=== PATIENT | female | born 1960 | race Two or more races ===

== ENCOUNTER 2021-06-10 10:08 | Inpatient (IN) | payer MEDICAID ==
[~2021-06-10] VITALS: Ht 152.4 cm; Wt 99.1 kg
[~2021-06-10 10:08] MED LIST: AML5T PO; ENAL2.5T11 PO; FLUC100T3 PO; METF-372 PO; SIMV10TA84 PO; [UNRECOGNIZED DRUG - OTHER]
[2021-06-10] MEDS ORDERED: ONDANSETRON HCL 4 MG/2 ML VIAL IV ONE (12:15)
[2021-06-10] MEDS ORDERED: MORPHINE SULFATE 4 MG/ML SYR/VIAL IV ONE (12:15)
[2021-06-10] MEDS ORDERED: SODIUM CHLORIDE 0.9% 1,000 ML IV ONE (12:15)
[2021-06-10 13:17] LABS: Basophils # (auto) 0 10 ^3/uL (0-0.2); Basophils % (auto) 0.3 % (0.0-2.0); Eosinophils # (auto) 0 10 ^3/uL (0-0.8); Eosinophils % (auto) 0.2 % (0.0-7.0); Hematocrit 38.9 % (36.0-46.0); Lymphocytes # (auto) 1.2 10 ^3/uL (0.4-5.4); Lymphocytes % (auto) 7.2 % (10.0-50.0); Mean Corpuscular Hgb Conc. 33.5 g/dL (32.0-36.0); Mean Corpuscular Volume 86.6 fL (80.0-100.0); Monocytes # (auto) 0.6 10 ^3/uL (0-1.3); Monocytes % (auto) 3.4 % (0.0-12.0); Neutrophils # (auto) 14.4 10 ^3/uL (1.6-8.6); Neutrophils % (auto) 88.9 % (37.0-80.0); Nucleated Red Blood Cells % 0.1 %; Red Cell Distribution Width 15.7 % (11.8-14.3); White Blood Cell 16.2 10^3/uL (4.4-10.8)
[2021-06-10 13:28] LABS: Albumin 3.3 g/dL (3.4-5.0); Calcium 8.8 mg/dL (8.5-10.1); Potassium 4.3 mmol/L (3.5-5.1)
[2021-06-10 13:30] LABS: Urine Bacteria NONE SEEN /hpf (None Seen); Urine Blood 2+ /uL (Negative); Urine Mucus FEW (None Seen); Urine Specific Gravity 1.026 (1.001-1.035); Urine WBC <1 /hpf (0 - 5)
[2021-06-10 13:33] LABS: INR 1.01 (0.9-1.15)
[2021-06-10 13:34] LABS: BUN/Creatinine Ratio 26.4; Bilirubin, Total 0.4 mg/dL (0.2-1.0); Total Protein 7.7 g/dL (6.4-8.2)
[2021-06-10] MEDS ORDERED: SODIUM CHLORIDE 0.9% 1,000 ML IV SCH (18:00)
[2021-06-10] MEDS ORDERED: MORPHINE SULFATE INJECTION 2 MG/ML SYRG IV PRN (18:00)
[2021-06-10] MEDS ORDERED: NITROGLYCERIN 0.4 MG SL TAB SL PRN (18:00)
[2021-06-10 22:51] VITALS: BP 133/47
[2021-06-10 23:00] VITALS: BP 133/47
[2021-06-11] MEDS ORDERED: INFLUENZA QUAD 2021-2022 0.5 ML SYRG IM ONE
[2021-06-11 05:00] VITALS: BP 128/67
[2021-06-11 06:07] LABS: Basophils # (auto) 0 10 ^3/uL (0-0.2); Basophils % (auto) 0.3 % (0.0-2.0); Eosinophils # (auto) 0 10 ^3/uL (0-0.8); Eosinophils % (auto) 0.4 % (0.0-7.0); Hematocrit 36.6 % (36.0-46.0); Hemoglobin 12.3 g/dL (12.2-16.2); Lymphocytes % (auto) 17.3 % (10.0-50.0); Mean Corpuscular Hemoglobin 28.9 pg (28.0-32.0); Mean Corpuscular Hgb Conc. 33.5 g/dL (32.0-36.0); Mean Corpuscular Volume 86.3 fL (80.0-100.0); Monocytes # (auto) 0.7 10 ^3/uL (0-1.3); Monocytes % (auto) 6.1 % (0.0-12.0); Neutrophils # (auto) 8.7 10 ^3/uL (1.6-8.6); Neutrophils % (auto) 75.9 % (37.0-80.0); Red Blood Cells 4.24 10^6/uL (4.0-5.20); Red Cell Distribution Width 15.3 % (11.8-14.3); White Blood Cell 11.5 10^3/uL (4.4-10.8)
[2021-06-11 06:31] LABS: Calcium 8.7 mg/dL (8.5-10.1); Potassium 4.2 mmol/L (3.5-5.1)
[2021-06-11 06:34] LABS: BUN/Creatinine Ratio 18.6
[2021-06-11 06:36] LABS: Bilirubin, Total 0.6 mg/dL (0.2-1.0); Total Protein 7.1 g/dL (6.4-8.2)
[2021-06-11] MEDS ORDERED: SODIUM CHLORIDE 0.9% 1,000 ML IV SCH (07:15)
[2021-06-11 09:00] VITALS: BP 135/71
[2021-06-11] MEDS: MORPHINE SULFATE INJECTION 2 MG/ML SYRG IV PRN (12:37)
[2021-06-11 13:00] VITALS: BP 137/67
[2021-06-11] MEDS ORDERED: SUCCINYLCHOLINE CHLORIDE 20 MG/ML 10ML VIAL IV ONE (13:24)
[2021-06-11] MEDS ORDERED: MORPHINE SULF PF 2 MG/2 ML SYRG ONE (13:35)
[2021-06-11] MEDS ORDERED: KETOROLAC TROMETH 30 MG/ML 1ML VIAL ONE (13:36)
[2021-06-11] MEDS ORDERED: BUPIVACAINE W/ EPINEPH 0.25% INJ 50ML MDV ONE (13:37)
[2021-06-11] MEDS ORDERED: MEPERIDINE HCL (50 MG/ML) 1 ML VIAL ONE (13:46)
[2021-06-11] MEDS ORDERED: fentaNYL CITRATE 100 MCG/2 ML VL ONE (13:46)
[2021-06-11] MEDS ORDERED: MIDAZOLAM HCL 2MG/2ML 2ml VIAL (1mg/ml) ONE (13:46)
[2021-06-11] MEDS ORDERED: InsuLIN REG 1unit/0.01ml Soln (100units/ml) ONE (14:07)
[2021-06-11] MEDS ORDERED: LABETALOL HCL 5 MG/ML 4ML SYRINGE IV PRN (14:45)
[2021-06-11] MEDS ORDERED: HYDROmorphone HCL 2 MG/ML VL IV PRN (14:45)
[2021-06-11] MEDS ORDERED: ePHEDrine SULFATE 50 MG/ML AMP IV PRN (14:45)
[2021-06-11] MEDS ORDERED: ACCU-CHEK COMFORT CURVE STRIP VI ONE (14:45)
[2021-06-11] MEDS ORDERED: MIDAZOLAM HCL 2MG/2ML 2ml VIAL (1mg/ml) IV PRN (14:45)
[2021-06-11] MEDS ORDERED: MORPHINE SULFATE 4 MG/ML SYR/VIAL IV PRN (14:45)
[2021-06-11] MEDS ORDERED: ONDANSETRON HCL 4 MG/2 ML VIAL IV PRN (14:45)
[2021-06-11] MEDS ORDERED: ETOMIDATE (2MG/ML) 20ML VIAL IV ONE (15:07)
[2021-06-11] MEDS ORDERED: ONDANSETRON HCL 4 MG/2 ML VIAL ONE (15:07)
[2021-06-11] MEDS ORDERED: DexAMETHasone SOD PHOS 10MG/1ML VIAL INJ ONE (15:07)
[2021-06-11] MEDS ORDERED: DEXTROSE (50%) 50ML SYRG IV PRN (15:45)
[2021-06-11 17:00] VITALS: BP 152/73
[2021-06-11] MEDS ORDERED: ACCU-CHEK COMFORT CURVE STRIP VI SCH (17:00)
[2021-06-11] MEDS: LACTATED RINGER'S 1,000 ML IV SCH (17:36)
[2021-06-11] MEDS: InsuLIN REG 1unit/0.01ml Soln (100units/ml) SC SCH ×2 (18:10→23:10)
[2021-06-11] MEDS: ACCU-CHEK COMFORT CURVE STRIP VI SCH ×2 (18:13→22:00)
[2021-06-11 22:00] VITALS: BP 148/74
[2021-06-11] MEDS: SODIUM CHLOR 0.9% PF (SALINE LOCK) 10ML VIAL/SYR IV SCH (22:00)
[2021-06-12] MEDS: LACTATED RINGER'S 1,000 ML IV SCH ×2 (01:30→05:29)
[2021-06-12 05:00] VITALS: BP 129/61
[2021-06-12] MEDS: HYDROcodone-ACET 5/325MG TAB PO PRN ×2 (05:23→15:50)
[2021-06-12] MEDS: InsuLIN REG 1unit/0.01ml Soln (100units/ml) SC SCH ×3 (07:00→23:14)
[2021-06-12] MEDS: ACCU-CHEK COMFORT CURVE STRIP VI SCH ×4 (07:00→22:00)
[2021-06-12 07:08] LABS: Albumin 2.6 g/dL (3.4-5.0); Calcium 8.9 mg/dL (8.5-10.1); Potassium 4.8 mmol/L (3.5-5.1)
[2021-06-12 07:10] LABS: BUN/Creatinine Ratio 28.8
[2021-06-12 07:12] LABS: Bilirubin, Total 0.4 mg/dL (0.2-1.0); Total Protein 6.6 g/dL (6.4-8.2)
[2021-06-12 07:23] LABS: Hematocrit 32.7 % (36.0-46.0); Hemoglobin 10.7 g/dL (12.2-16.2)
[2021-06-12 09:00] VITALS: BP 120/51
[2021-06-12] MEDS: ENOXAPARIN SOD 40 MG/0.4 ML SYRINGE SC SCH (09:40)
[2021-06-12 13:00] VITALS: BP 108/63
[2021-06-12] MEDS ORDERED: ERGOCALCIFEROL 50,000 UNIT(1.25MG) CAP PO ONE (14:45)
[2021-06-12] MEDS ORDERED: hydrALAZINE HCL 20 MG/ML VL IV PRN (14:45)
[2021-06-12 17:00] VITALS: BP 125/62
[2021-06-12 22:00] VITALS: BP 120/48
[2021-06-12] MEDS: INSULIN LANTUS (GLARGINE) 1 /0.01ml (100units/ml) SC SCH (23:16)
[2021-06-13 05:00] VITALS: BP 118/63
[2021-06-13] MEDS: LACTATED RINGER'S 1,000 ML IV SCH ×2 (07:25→23:45)
[2021-06-13] MEDS: InsuLIN REG 1unit/0.01ml Soln (100units/ml) SC SCH ×4 (07:26→21:11)
[2021-06-13] MEDS: ACCU-CHEK COMFORT CURVE STRIP VI SCH ×4 (07:26→21:05)
[2021-06-13 08:30] LABS: Basophils # (auto) 0 10 ^3/uL (0-0.2); Basophils % (auto) 0.3 % (0.0-2.0); Eosinophils # (auto) 0.2 10 ^3/uL (0-0.8); Eosinophils % (auto) 1.4 % (0.0-7.0); Hematocrit 29.4 % (36.0-46.0); Hemoglobin 10.1 g/dL (12.2-16.2); Lymphocytes # (auto) 2.7 10 ^3/uL (0.4-5.4); Lymphocytes % (auto) 25.6 % (10.0-50.0); Mean Corpuscular Hemoglobin 29.8 pg (28.0-32.0); Mean Corpuscular Hgb Conc. 34.3 g/dL (32.0-36.0); Mean Corpuscular Volume 86.8 fL (80.0-100.0); Monocytes # (auto) 0.5 10 ^3/uL (0-1.3); Neutrophils # (auto) 7.2 10 ^3/uL (1.6-8.6); Neutrophils % (auto) 67.7 % (37.0-80.0); Red Blood Cells 3.38 10^6/uL (4.0-5.20); Red Cell Distribution Width 15.2 % (11.8-14.3); White Blood Cell 10.7 10^3/uL (4.4-10.8)
[2021-06-13 08:36] LABS: Potassium 3.9 mmol/L (3.5-5.1)
[2021-06-13 09:00] VITALS: BP 111/38
[2021-06-13] MEDS: HYDROcodone-ACET 5/325MG TAB PO PRN ×5 (09:23→20:03)
[2021-06-13] MEDS: CHOLECALCIFEROL (VITD3) 2,000 UNIT CAP/TAB PO SCH (09:26)
[2021-06-13] MEDS: amLODIPine BESYLATE 5 MG TAB PO SCH (09:27)
[2021-06-13] MEDS: ENOXAPARIN SOD 40 MG/0.4 ML SYRINGE SC SCH (09:27)
[2021-06-13 10:27] LABS: BUN/Creatinine Ratio 33.3; Calcium 8.5 mg/dL (8.5-10.1); Magnesium 2.3 mg/dL (1.6-2.6)
[2021-06-13 13:00] VITALS: BP 122/57
[2021-06-13 17:00] VITALS: BP 116/40
[2021-06-13] MEDS: MORPHINE SULFATE INJECTION 2 MG/ML SYRG IV PRN (20:06)
[2021-06-13] MEDS: INSULIN LANTUS (GLARGINE) 1 /0.01ml (100units/ml) SC SCH (21:10)
[2021-06-13 21:47] VITALS: BP 121/52
[2021-06-13] MEDS: SODIUM CHLOR 0.9% PF (SALINE LOCK) 10ML VIAL/SYR IV SCH (22:00)
[2021-06-14 04:36] VITALS: BP_SYST 134; BP_SYST 34; BP_DIAS 50
[2021-06-14] MEDS: ACCU-CHEK COMFORT CURVE STRIP VI SCH ×4 (06:36→21:47)
[2021-06-14] MEDS: InsuLIN REG 1unit/0.01ml Soln (100units/ml) SC SCH ×4 (06:38→21:58)
[2021-06-14 06:56] LABS: Basophils # (auto) 0.1 10 ^3/uL (0-0.2); Basophils % (auto) 0.5 % (0.0-2.0); Eosinophils # (auto) 0.5 10 ^3/uL (0-0.8); Hematocrit 30.2 % (36.0-46.0); Hemoglobin 10.2 g/dL (12.2-16.2); Lymphocytes # (auto) 2.4 10 ^3/uL (0.4-5.4); Lymphocytes % (auto) 24.9 % (10.0-50.0); Mean Corpuscular Hemoglobin 29.3 pg (28.0-32.0); Mean Corpuscular Hgb Conc. 33.7 g/dL (32.0-36.0); Mean Corpuscular Volume 87.1 fL (80.0-100.0); Monocytes # (auto) 0.5 10 ^3/uL (0-1.3); Monocytes % (auto) 4.9 % (0.0-12.0); Neutrophils # (auto) 6.3 10 ^3/uL (1.6-8.6); Neutrophils % (auto) 64.7 % (37.0-80.0); Nucleated Red Blood Cells % 0.1 %; Red Blood Cells 3.47 10^6/uL (4.0-5.20); Red Cell Distribution Width 15.3 % (11.8-14.3); White Blood Cell 9.8 10^3/uL (4.4-10.8)
[2021-06-14] MEDS: SODIUM CHLOR 0.9% PF (SALINE LOCK) 10ML VIAL/SYR IV SCH ×3 (06:59→21:48)
[2021-06-14] MEDS: LACTATED RINGER'S 1,000 ML IV SCH ×2 (06:59→17:31)
[2021-06-14] MEDS: HYDROcodone-ACET 5/325MG TAB PO PRN ×3 (07:01→22:01)
[2021-06-14 07:21] LABS: Potassium 4.2 mmol/L (3.5-5.1)
[2021-06-14 07:48] LABS: Albumin 2.7 g/dL (3.4-5.0); Bilirubin, Total 0.5 mg/dL (0.2-1.0); Calcium 8.3 mg/dL (8.5-10.1); Total Protein 6.6 g/dL (6.4-8.2)
[2021-06-14 09:00] VITALS: BP 118/54
[2021-06-14] MEDS: amLODIPine BESYLATE 5 MG TAB PO SCH (09:01)
[2021-06-14] MEDS: CHOLECALCIFEROL (VITD3) 2,000 UNIT CAP/TAB PO SCH (09:03)
[2021-06-14] MEDS: ENOXAPARIN SOD 40 MG/0.4 ML SYRINGE SC SCH (09:04)
[2021-06-14 13:00] VITALS: BP 121/56
[2021-06-14] MEDS: INSULIN LANTUS (GLARGINE) 1 /0.01ml (100units/ml) SC SCH (21:57)
[2021-06-15] VITALS (7 sets, daily range): BP systolic 96–132; BP diastolic 44–68
[2021-06-15] MEDS: ACCU-CHEK COMFORT CURVE STRIP VI SCH ×4 (06:25→21:50)
[2021-06-15] MEDS: SODIUM CHLOR 0.9% PF (SALINE LOCK) 10ML VIAL/SYR IV SCH ×3 (06:34→21:50)
[2021-06-15] MEDS: InsuLIN REG 1unit/0.01ml Soln (100units/ml) SC SCH ×4 (06:43→21:51)
[2021-06-15] MEDS: LACTATED RINGER'S 1,000 ML IV SCH (09:25)
[2021-06-15] MEDS: CHOLECALCIFEROL (VITD3) 2,000 UNIT CAP/TAB PO SCH (10:03)
[2021-06-15] MEDS: ENOXAPARIN SOD 40 MG/0.4 ML SYRINGE SC SCH (10:04)
[2021-06-15] MEDS: amLODIPine BESYLATE 5 MG TAB PO SCH (10:04)
[2021-06-15] MEDS: HYDROcodone-ACET 5/325MG TAB PO PRN ×2 (10:22→18:09)
[2021-06-15] MEDS ORDERED: INSU1INJ21 SC (13:23)
[2021-06-15] MEDS ORDERED: GLIP10TA9 PO (13:23)
[2021-06-15] MEDS ORDERED: PIOG30TA28 PO (13:23)
[2021-06-15] MEDS ORDERED: INSULIN LANTUS (GLARGINE) 1 /0.01ml (100units/ml) SC SCH (22:00)
[2021-06-16] VITALS (7 sets, daily range): BP systolic 102–123; BP diastolic 40–62
[2021-06-16] MEDS: HYDROcodone-ACET 5/325MG TAB PO PRN ×3 (06:50→21:30)
[2021-06-16] MEDS: ACCU-CHEK COMFORT CURVE STRIP VI SCH ×4 (07:04→21:57)
[2021-06-16] MEDS: InsuLIN REG 1unit/0.01ml Soln (100units/ml) SC SCH ×4 (07:04→21:58)
[2021-06-16] MEDS: SODIUM CHLOR 0.9% PF (SALINE LOCK) 10ML VIAL/SYR IV SCH ×3 (07:05→21:56)
[2021-06-16] MEDS: amLODIPine BESYLATE 5 MG TAB PO SCH (10:10)
[2021-06-16] MEDS: CHOLECALCIFEROL (VITD3) 2,000 UNIT CAP/TAB PO SCH (10:10)
[2021-06-16] MEDS: ENOXAPARIN SOD 40 MG/0.4 ML SYRINGE SC SCH (10:11)
[2021-06-16] MEDS ORDERED: CHOL20007 PO (12:34)
[2021-06-16] MEDS ORDERED: ASPI-123 PO (12:34)
[2021-06-16] MEDS ORDERED: INSULIN LANTUS (GLARGINE) 1 /0.01ml (100units/ml) SC SCH (22:00)
[2021-06-17 05:10] VITALS: BP 122/56
[2021-06-17] MEDS: SODIUM CHLOR 0.9% PF (SALINE LOCK) 10ML VIAL/SYR IV SCH ×2 (06:13→12:04)
[2021-06-17] MEDS: ACCU-CHEK COMFORT CURVE STRIP VI SCH ×3 (06:15→17:51)
[2021-06-17] MEDS: InsuLIN REG 1unit/0.01ml Soln (100units/ml) SC SCH ×3 (06:18→18:24)
[2021-06-17 08:30] VITALS: BP 127/74
[2021-06-17] MEDS: HYDROcodone-ACET 5/325MG TAB PO PRN ×2 (08:44→17:39)
[2021-06-17 09:00] VITALS: BP 127/74
[2021-06-17] MEDS: CHOLECALCIFEROL (VITD3) 2,000 UNIT CAP/TAB PO SCH (09:16)
[2021-06-17] MEDS: amLODIPine BESYLATE 5 MG TAB PO SCH (09:17)
[2021-06-17] MEDS: ENOXAPARIN SOD 40 MG/0.4 ML SYRINGE SC SCH (09:17)
[2021-06-17] MEDS ORDERED: ASPirin-EC 325mg tab PO SCH (10:00)
[2021-06-17 12:40] VITALS: BP 124/70
[2021-06-17 16:40] VITALS: BP 131/66
[2021-06-17 16:53] VITALS: BP 131/66
== END 2021-06-17 20:20 | DRG 308 ==
LOC: ER 10:08 → EDBD 10:08 → OVERFLOW 17:53 → WEST WING 22:35
PROVIDERS: ADMIT Internal Medicine; ATTEND Internal Medicine
PROC: 3E02340 Introduction of Influenza Vaccine into Muscle, Percutaneous Approach (ICD-10-PCS; 2021-06-11)
PROC: 0QS704Z Reposition Left Upper Femur with Internal Fixation Device, Open Approach (ICD-10-PCS; principal; 2021-06-11 14:10)
DX: S72.142A Displaced intertrochanteric fracture of left femur, initial encounter for closed fracture (principal); Z68.41 Body mass index [BMI] 40.0-44.9, adult; D62 Acute posthemorrhagic anemia; E11.9 Type 2 diabetes mellitus without complications; D72.829 Elevated white blood cell count, unspecified; E66.01 Morbid (severe) obesity due to excess calories; E55.9 Vitamin D deficiency, unspecified; E78.5 Hyperlipidemia, unspecified; Z20.822 Contact with and (suspected) exposure to COVID-19; W18.39XA Other fall on same level, initial encounter; I10 Essential (primary) hypertension; Z79.84 Long term (current) use of oral hypoglycemic drugs; Z23 Encounter for immunization; Z82.0 Family history of epilepsy and other diseases of the nervous system; Z83.3 Family history of diabetes mellitus; Z87.442 Personal history of urinary calculi; Z88.1 Allergy status to other antibiotic agents; Z91.041 Radiographic dye allergy status; Y93.89 Activity, other specified; Y92.89 Other specified places as the place of occurrence of the external cause; Y99.8 Other external cause status
CPT/HCPCS: 36415; 71045; 72192; 73501; 73502; 73700; 76000; 80048; 80053; 80061; 81001; 82306; 82962; 83036; 83735; 83880; 84443; 84484; 85014; 85018; 85025; 85610; 85730; 86850; 86900; 86901; 87426; 96361; 96374; 96375; 97110; 97116; 97163; 97530; C1713; C1769; G0378; J0330; J1100; J1815; J1885; J2250; J2405

== ENCOUNTER → 2023-06-01 | Outpatient (CLI) | payer MEDICAID ==
[~2023-06-01] MED LIST changes: +ASPI-123 PO; -FLUC100T3 PO; +GLIP10TA9 PO; +INSU1INJ21 SC; -METF-372 PO; +PIOG30TA28 PO; +SIMV10TA20 PO; -SIMV10TA84 PO; -[UNRECOGNIZED DRUG - OTHER]
[2023-06-01 10:03] LABS: Basophils # (auto) 0.1 10 ^3/uL (0-0.2); Basophils % (auto) 0.7 % (0.0-2.0); Eosinophils # (auto) 0.4 10 ^3/uL (0-0.8); Eosinophils % (auto) 4.6 % (0.0-7.0); Hematocrit 40.3 % (36.0-46.0); Hemoglobin 13.3 g/dL (12.2-16.2); Lymphocytes # (auto) 2.5 10 ^3/uL (0.4-5.4); Lymphocytes % (auto) 25.8 % (10.0-50.0); Mean Corpuscular Volume 87.8 fL (80.0-100.0); Monocytes # (auto) 0.4 10 ^3/uL (0-1.3); Monocytes % (auto) 4.5 % (0.0-12.0); Neutrophils # (auto) 6.3 10 ^3/uL (1.6-8.6); Neutrophils % (auto) 64.4 % (37.0-80.0); Red Blood Cells 4.59 10^6/uL (4.0-5.20); Red Cell Distribution Width 15.8 % (11.8-14.3); White Blood Cell 9.8 10^3/uL (4.4-10.8)
[2023-06-01 10:29] LABS: Alanine Aminotransferase 20 U/L (7-40); Alkaline Phosphatase 91 U/L (46-116); Anion Gap 6 (5-15); BUN/Creatinine Ratio 15.8 (10.0-20.0); Blood Urea Nitrogen 12 mg/dL (9-23); Calcium 9.3 mg/dL (8.5-10.1); Carbon Dioxide 27 mmol/L (20-30); Chloride 102 mmol/L (98-107); Glucose 241 mg/dL (74-106); LDL Cholesterol 158 mg/dL (< 100); Potassium 4.4 mmol/L (3.5-5.1); Sodium 135 mmol/L (136-145); Triglycerides 84 mg/dL (< 150)
[2023-06-01 10:30] LABS: Albumin 4.2 g/dL (3.2-4.8); Aspartate Aminotransferase 17 U/L (13-40); Bilirubin, Total 0.4 mg/dL (0.2-1.0); Cholesterol 210 mg/dL (< 200); HDL Cholesterol 40 mg/dL (40-59); Total Protein 7.5 g/dL (5.7-8.2)
[2023-06-01 10:58] LABS: Folate (Folic Acid) 8.63 ng/mL (>5.38); Magnesium 1.8 mg/dL (1.6-2.6); Uric Acid 4.2 mg/dL (3.1-7.8)
[2023-06-01 14:04] LABS: Urine Bacteria FEW /hpf (None Seen); Urine Blood Negative /uL (Negative); Urine Clarity CLOUDY (Clear); Urine Color Yellow (Yellow); Urine Mucus FEW (None Seen); Urine Protein, UAD TRACE (Negative); Urine Specific Gravity 1.025 (1.001-1.035); Urine Urobilinogen Normal (Negative); Urine WBC 6 /hpf (0 - 5); Urine pH 5.5 (5.0-8.0)
== END | disposition home or self-care (01) ==
LOC: LAB 09:33
PROVIDERS: ATTEND Internal Medicine
DX: E61.2 Magnesium deficiency (principal); R94.6 Abnormal results of thyroid function studies; E79.0 Hyperuricemia without signs of inflammatory arthritis and tophaceous disease; R82.998 Other abnormal findings in urine; E55.9 Vitamin D deficiency, unspecified; D51.9 Vitamin B12 deficiency anemia, unspecified; R82.79 Other abnormal findings on microbiological examination of urine; R78.89 Finding of other specified substances, not normally found in blood; R68.89 Other general symptoms and signs; E78.49 Other hyperlipidemia; R73.09 Other abnormal glucose
CPT/HCPCS: 36415; 80053; 80061; 81001; 82306; 82607; 82746; 83036; 83735; 84443; 84550; 85025; 87086

== ENCOUNTER 2024-04-04 14:04 | Inpatient (IN) | payer OTHER, MEDICAID ==
[~2024-04-04] VITALS: Ht 152.4 cm; Wt 96.6 kg
[~2024-04-04 14:04] MED LIST changes: +ENAL1TAB43 PO; -ENAL2.5T11 PO
[2024-04-04] MEDS: SODIUM CHLORIDE 0.9% 1,000 ML IV ONE (17:00)
--- NOTE | 2024-04-04 17:09 | ED.PDOC ---
History of Present Illness HPI Comments 64 y/o F, with a Hx of morbid obesity, DM, HLD, HTN, and polysubstance abuse, presents with c/o posterior headache, speech stuttering problems, and lower back pain for the past 3x days s/p mechanical fall and injury 2x weeks ago. Patient endorses on onset of symptoms, suddenly and intermittently, for the past 3x days after she had fell backwards and landed and hit the back of her head against carpet deepthi in her home without lost of consciousness 2x weeks ago. Patient reports having no symptoms, initially, following incident and falling, due to slipping and losing her balance. She states on not seeking medical attention for incident until onset of symptoms. She denies any additional relevant or pertinent Hx, such as any additional injuries prior to or after the fall. She denies having any weakness, numbness, tingling sensation, dizziness, vision changes, or other associated symptoms or modifiers at this time. Chief Complaint: Fall Injury Time Seen by MD: 16:30 Primary Care Provider: LONA Reviewed Notes: Nurses Notes, Medications, Allergies Allergies: Coded Allergies: Iodine (Verified Allergy, Severe, 10/25/14) Amoxicillin (Verified Adverse Reaction, Mild, 05/07/15) STOMACHACHE Home Meds Active Scripts Aspirin (ENTERIC COATED ASPIRIN) 325 Mg Tab, 1 TAB PO DAILY, #30 TAB Prov:DAVID AMADOR MD 06/16/21 Reported Medications Glipizide (Glipizide) 10 Mg Tab, 1 TAB PO DAILY 06/15/21 Insulin NPH Isophane & Reg (Hu (Novolin 70/30 Flexpen (70-30) 100 Unit/ml) 1 Inj Inj, 50 UNIT SC QAM&QPM IF BS HIGH INJECT 50 UNITS QAM&QPM IF NORMAL INJECT 40 UNITS QAM &QPM 06/15/21 Pioglitazone Hydrochloride (Actos) 30 Mg Tab, 30 MG PO DAILY for 30 Days, #30 TAB 06/15/21 Enalapril Maleate (VASOTEC TABLET) 2.5 Mg Tb, 1 TAB PO DAILY, #30 TAB 5 Refills 05/07/15 Amlodipine Besylate (NORVASC TABLET) 5 Mg Tb, 1 TAB PO DAILY, #30 TAB 5 Refills 05/07/15 Simvastatin (Simvastatin) 10 Mg Tab, 1 TAB PO QPM, #30 TAB 5 Refills 05/07/15 Information Source: Patient Mode of Arrival: Ambulatory Severity: Moderate Timing: Days Duration: Since onset Prehospital treatment: None Past Medical History PAST MEDICAL HISTORY: DM, High Lipids, HTN, Kidney Stones Past Medical History (Other): morbid obesity Surgical History: Surgical History (Other): left-hip Sx s/p left hip fracture [employer] History: No Pertinent [employer] History Family History Family History: Unknown Social History Smoker: Non-Smoker Alcohol: Rarely Drugs: Marijuana ( ) Lives In: Home Neurological: reports: headache, speech problems Musculoskeletal: reports: back pain All Other Systems: Reviewed and Negative (negative unless otherwise stated above or in HPI) Physical Exam General Appearance: Mild Distress, Moderate Distress, Obese HEENT: Normal ENT Inspection, PERRL/EOMI, Other (In occipital scalp) Neck: Limited Range of Motion, Non-Tender Respiratory: Chest Non-Tender, Lungs Clear, No Accessory Muscle Use, No Respiratory Distress, Normal Breath Sounds Cardiovascular: No Edema, No JVD, No Murmur, No Gallop, Normal Peripheral Pulses, Regular Rate/Rhythm Breast Exam: Deferred Gastrointestinal: No Organomegaly, Non Tender, No Pulsatile Mass, Normal Bowel Sounds, Soft Genitalia: Deferred Pelvic: Deferred Rectal: Deferred Extremities: No calf tenderness, Normal capillary refill, Normal inspection, Normal range of motion, Non-tender, No pedal edema Musculoskeletal : Location: Bilateral Extremity Location: Back Apperance: Limited ROM, Tenderness: Moderate Neurologic: Alert, Depressed Affect, Headache, Speech Problem (Patient unable to complete sentence and also is stuttering this is after she had the fall few days ago early could also be TIA) Cerebellar Function: Normal Reflexes: Normal Skin: Dry, Normal Color, Warm Peripheral Pulses: 1+ carotid (R), 1+ carotid (L) Lymphatic: No Adenopathy Was a procedure done? Was a procedure done?: No EKG EKG : Pulse Rate (adult): 96 [place]: RAD Cardiac Rhythm: NSR Differential Dx Considerations may include: TIA, CVA, hannah-palsy, electrolyte imbalance, musculoskeletal pain, fracture, dislocation, contusion, bruising, intracranial bleed X-Ray, Labs, Meds, VS Vital Signs Date Time Temp Pulse Resp B/P (MAP) Pulse Ox O2 Delivery O2 Flow Rate FiO2 04/04/24 18:23 96 04/04/24 14:20 98.3 102 18 178/76 (110) 97 Lab Test 04/04/24 17:18 Range/Units White Blood Count 13.7 H 4.4-10.8 10^3/uL Red Blood Count 5.21 H 4.0-5.20 10^6/uL Hemoglobin 15.4 12.2-16.2 g/dL Hematocrit 45.2 36.0-46.0 % Mean Corpuscular Volume 86.7 80.0-100.0 fL Mean Corpuscular Hemoglobin 29.5 28.0-32.0 pg Mean Corpuscular Hemoglobin Concent 34.0 32.0-36.0 g/dL Red Cell Distribution Width 15.1 H 11.8-14.3 % Platelet Count 324 140-450 10^3/uL Mean Platelet Volume 9.3 6.9-10.8 fL Neutrophils (%) (Auto) 66.2 37.0-80.0 % Lymphocytes (%) (Auto) 25.7 10.0-50.0 % Monocytes (%) (Auto) 4.7 0.0-12.0 % Eosinophils (%) (Auto) 2.9 0.0-7.0 % Basophils (%) (Auto) 0.5 0.0-2.0 % Neutrophils # (Auto) 9.1 H 1.6-8.6 10 ^3/uL Lymphocytes # (Auto) 3.5 0.4-5.4 10 ^3/uL Monocytes # (Auto) 0.6 0-1.3 10 ^3/uL Eosinophils # (Auto) 0.4 0-0.8 10 ^3/uL Basophils # (Auto) 0.1 0-0.2 10 ^3/uL Nucleated Red Blood Cells 0.1 % Sodium Level 136 136-145 mmol/L Potassium Level 4.3 3.5-5.1 mmol/L Chloride Level 101 98-107 mmol/L Carbon Dioxide Level 28 20-31 mmol/L Anion Gap 7 5-15 Blood Urea Nitrogen 17 9-23 mg/dL Creatinine 0.90 0.550-1.02 mg/dL Glomerular Filtration Rate Calc 71 >90 mL/min BUN/Creatinine Ratio 18.9 10.0-20.0 Serum Glucose 262 H 74-106 mg/dL Calcium Level 10.2 8.7-10.4 mg/dL Magnesium Level 1.9 1.6-2.6 mg/dL Total Bilirubin 0.3 0.2-1.0 mg/dL Aspartate Amino Transferase (AST) 13 13-40 U/L Alanine Aminotransferase (ALT) 18 7-40 U/L Alkaline Phosphatase 120 H 46-116 U/L Total Protein 7.7 5.7-8.2 g/dL Albumin 4.4 3.2-4.8 g/dL [place] [address] Ph: [phone] DIAGNOSTIC IMAGING Diagnostic Imaging Report : [id number] Signed PATIENT: JESSICA HERNDON ACCT: [id number] UNIT: [id number] : 1960 LOC: ER ROOM / BED: / AGE / SEX: 64 / F ADM STATUS: REG ER SERVICE 164 ORDERING PHYSICIAN: ORALIA LARA MD PROCEDURE(s): CTH - STROKE CTH REASON: Head trauma speech deficit ORDER NUMBER(s): [id number], ACCESSION NUMBER(s): [id number] EXAM: CT STROKE CTH HISTORY: Head trauma speech deficit COMPARISON: None TECHNIQUE: Axial images of the head were obtained and reformatted in coronal and sagittal planes. All CT scans at this medical facility are performed using dose modulation techniques as appropriate to a performed exam including the following: Automated exposure control was utilized; adjustment of the MA and/or KV according to patient size; and use of iterative reconstruction technique. CT Dose: CTDI volume is 52 mGy. Dose-length product is 831 mGy*cm FINDINGS: There is no evidence of acute intracranial hemorrhage, mass, mass effect midline shift. There is no hydrocephalus or extra-axial fluid collection. Note is made of cavum septum pellucidum and vergae. Meehan-white matter differentiation is maintained. The visualized paranasal sinuses and mastoid air cells are clear. The calvarium is intact. IMPRESSION: 1. No acute intracranial process. HS:Y ATED BY: ARBEN VALDEZ MD DICTATED DATE/TIME: 04/04/24 1716 SIGNED BY: ARBEN VALDEZ MD SIGNED DATE/TIME: 04/04/24 4105 CC: [address] [id number] Ph: [phone] DIAGNOSTIC IMAGING Diagnostic Imaging Report : [id number] Signed PATIENT: JESSICA HERNDON ACCT: [id number] UNIT: [id number] : 1960 LOC: ER ROOM / BED: / AGE / SEX: 64 / F ADM STATUS: REG ER SERVICE 1646 ORDERING PHYSICIAN: ORALIA LARA MD PROCEDURE(s): LS2CT - LS SPINE WO CONTRAST REASON: Fall ORDER NUMBER(s): [id number], ACCESSION NUMBER(s): [id number] CT LS SPINE WO CONTRAST Date: 04/04/2024 04:52 PM History: Fall Comparison: None TECHNIQUE: Multiple axial CT images of the lumbosacral spine were obtained using bone algorithm. Axial and coronal reformatting was done. Bone and soft tissue windows were reviewed. Radiation Dose Information: CT Dose: CTDI volume is 37.52 mGy. Dose-length product is 1193.41 mGy*cm FINDINGS: No CT evidence of definite acute fracture, spinal dislocation, or significant appearing acute subluxation is seen. The visualized paraspinal soft tissues are grossly unremarkable. T12-L1 There is no evidence of central spinal canal or neuroforaminal stenosis. L1-L2 There is no evidence of central spinal canal or neuroforaminal stenosis. L2-L3 There is no evidence of central spinal canal or neuroforaminal stenosis. L3-L4 There is no evidence of central spinal canal or neuroforaminal stenosis. L4-L5 There is no evidence of central spinal canal or neuroforaminal stenosis. L5-S1 There is no evidence of central spinal canal or neuroforaminal stenosis. There is lumbarization of S1. IMPRESSION: 1. No definite CT evidence of acute fracture or dislocation of the bony lumbar spine. 2. Lumbarization of S1. 3. All CT scans at this medical facility are performed using dose modulation techniques as appropriate to a performed exam including the following: Automated exposure control was utilized; adjustment of the MA and/or KV according to patient size; and use of iterative reconstruction technique. ATED BY: NADEEM LOPEZ Jr., DO DICTATED DATE/TIME: 04/04/241725 SIGNED BY: NADEEM LOPEZ Jr., DO SIGNED DATE/TIME: 04/04/241725 CC: [address] [address] Ph: [phone] DIAGNOSTIC IMAGING Diagnostic Imaging Report : [id number] Signed PATIENT: JESSICA HERNDON ACCT: [id number] UNIT: [id number] : 1960 LOC: ER ROOM / BED: / AGE / SEX: 64 / F ADM STATUS: REG ER SERVICE 45 ORDERING PHYSICIAN: ORALIA LARA MD PROCEDURE(s): CXR2 - CHEST TWO VIEWS ROUTINE REASON: TIA ORDER NUMBER(s): [id number], ACCESSION NUMBER(s): [id number] EXAM: XR Chest, 2 Views CLINICAL INDICATION: TIA TECHNIQUE: Frontal and lateral views of the chest. COMPARISON: None FINDINGS: LUNGS AND PLEURAL SPACES: Unremarkable. No consolidation. No pneumothorax. HEART: Unremarkable. No cardiomegaly. MEDIASTINUM: Unremarkable. Normal mediastinal contour. BONES/JOINTS: Unremarkable. No acute fracture. OTHER FINDINGS: . . . IMPRESSION: No acute cardiopulmonary process. HS:Y ATED BY: GONZALEZ IGNACIO MD DICTATED DATE/TIME: 04/04/241723 SIGNED BY: GONZALEZ IGNACIO MD SIGNED DATE/TIME: 04/04/241723 CC: X-Ray, Labs, Meds, VS Comment Course in the emergency department eventful Patient is stuttering after fall and actually have difficulty speaking in full sentences this happened after two or three days after a fall from a ladder She is complaining of head trauma and back pain okay the chest x-ray is normal the CT head is normal CT of the lumbar spine is normal chest x-ray is normal EKG shows normal sinus rhythm at 96 with a right [place] [address] with 66% neutrophils normal H&H CMP normal except for a blood sugar of 262 Patient will be discharged home to follow up with her PCP and a neurologist Time of 1ST Reevaluation: 17:00 Reevaluation 1ST: Unchanged Time of 2ND Reevaluation: 17:56 Reevaluation 2ND: Improved Consultation: PCP, Neurology Patient Education/Counseling: Diagnosis, Treatment, Prognosis, Need For Follow Up Family Education/Counseling: Diagnosis, Treatment, Prognosis, Need For Follow Up, No Family Present Departure 1 Departure Time of Disposition: 18:24 Impression: Primary Impression: Fall at home Additional Impressions: Contusion of occipital region of scalp Contusion of lumbar spinal region TIA (transient ischemic attack) Uncontrolled diabetes mellitus Qualified Codes: E11.65 - Type 2 diabetes mellitus with hyperglycemia Hypertension Qualified Codes: I15.2 - Hypertension secondary to endocrine disorders Critical Care Note Critical Care Time?: No Stability Stability form required: No Heart Score Heart Score: Heart Score Response (Comments) Value History N/A 0 EKG N/A 0 Age N/A 0 Risk Factors N/A 0 Troponin N/A 0 Total 0 I personally scribed for ORALIA LARA MD ([email or web address]) on 04/04/24 at 17:09. Electronically submitted by [employer] ([email or web address]). I personally scribed for ORALIA LARA MD ([email or web address]) on 04/04/24 at 17:33. Electronically submitted by [employer] ([email or web address]). ORALIA LARA MD Apr 04, 2024 17:09
--- NOTE | 2024-04-04 17:17 | DVH ---
EXAM: CT STROKE CTH HISTORY: Head trauma speech deficit COMPARISON: None TECHNIQUE: Axial images of the head were obtained and reformatted in coronal and sagittal planes. All CT scans at this medical facility are performed using dose modulation techniques as appropriate t o a performed exam including the following: Automated exposure control was utilized; adjustment of th e MA and/or KV according to patient size; and use of iterative reconstruction technique. CT Dose: CTDI volume is 52 mGy. Dose-length product is 831 mGy*cm FINDINGS: There is no evidence of acute intracranial hemorrhage, mass, mass effect midline shift. There is no h ydrocephalus or extra-axial fluid collection. Note is made of cavum septum pellucidum and vergae. Gr ay-white matter differentiation is maintained. The visualized paranasal sinuses and mastoid air cells are clear. The calvarium is intact. IMPRESSION: 1. No acute intracranial process. HS:Y
--- NOTE | 2024-04-04 17:26 | DVH ---
EXAM: XR Chest, 2 Views CLINICAL INDICATION: TIA TECHNIQUE: Frontal and lateral views of the chest. COMPARISON: None FINDINGS: LUNGS AND PLEURAL SPACES: Unremarkable. No consolidation. No pneumothorax. HEART: Unremarkable. No cardiomegaly. MEDIASTINUM: Unremarkable. Normal mediastinal contour. BONES/JOINTS: Unremarkable. No acute fracture. OTHER FINDINGS: . . . IMPRESSION: No acute cardiopulmonary process. HS:Y
--- NOTE | 2024-04-04 17:29 | DVH ---
CT LS SPINE WO CONTRAST Date: 04/04/2024 04:52 PM History: Fall Comparison: None TECHNIQUE: Multiple axial CT images of the lumbosacral spine were obtained using bone algorithm. Axial and coron al reformatting was done. Bone and soft tissue windows were reviewed. Radiation Dose Information: CT Dose: CTDI volume is 37.52 mGy. Dose-length product is 1193.41 mGy*cm FINDINGS: No CT evidence of definite acute fracture, spinal dislocation, or significant appearing acute subluxa tion is seen. The visualized paraspinal soft tissues are grossly unremarkable. T12-L1 There is no evidence of central spinal canal or neuroforaminal stenosis. L1-L2 There is no evidence of central spinal canal or neuroforaminal stenosis. L2-L3 There is no evidence of central spinal canal or neuroforaminal stenosis. L3-L4 There is no evidence of central spinal canal or neuroforaminal stenosis. L4-L5 There is no evidence of central spinal canal or neuroforaminal stenosis. L5-S1 There is no evidence of central spinal canal or neuroforaminal stenosis. There is lumbarization of S1. IMPRESSION: 1. No definite CT evidence of acute fracture or dislocation of the bony lumbar spine. 2. Lumbarization of S1. 3. All CT scans at this medical facility are performed using dose modulation techniques as appropriate to a performed exam including the following: Automated exposure control was utilized; adjustment of t he MA and/or KV according to patient size; and use of iterative reconstruction technique.
[2024-04-04 17:39] LABS: Basophils # (auto) 0.1 10 ^3/uL (0-0.2); Basophils % (auto) 0.5 % (0.0-2.0); Eosinophils # (auto) 0.4 10 ^3/uL (0-0.8); Eosinophils % (auto) 2.9 % (0.0-7.0); Hematocrit 45.2 % (36.0-46.0); Hemoglobin 15.4 g/dL (12.2-16.2); Lymphocytes # (auto) 3.5 10 ^3/uL (0.4-5.4); Lymphocytes % (auto) 25.7 % (10.0-50.0); Mean Corpuscular Hemoglobin 29.5 pg (28.0-32.0); Mean Corpuscular Volume 86.7 fL (80.0-100.0); Monocytes # (auto) 0.6 10 ^3/uL (0-1.3); Monocytes % (auto) 4.7 % (0.0-12.0); Neutrophils # (auto) 9.1 10 ^3/uL (1.6-8.6); Neutrophils % (auto) 66.2 % (37.0-80.0); Nucleated Red Blood Cells % 0.1 %; Platelet Count (auto) 324 10^3/uL (140-450); Red Blood Cells 5.21 10^6/uL (4.0-5.20); Red Cell Distribution Width 15.1 % (11.8-14.3); White Blood Cell 13.7 10^3/uL (4.4-10.8)
[2024-04-04 17:50] LABS: Alanine Aminotransferase 18 U/L (7-40); Albumin 4.4 g/dL (3.2-4.8); Anion Gap 7 (5-15); Aspartate Aminotransferase 13 U/L (13-40); BUN/Creatinine Ratio 18.9 (10.0-20.0); Bilirubin, Total 0.3 mg/dL (0.2-1.0); Blood Urea Nitrogen 17 mg/dL (9-23); Calcium 10.2 mg/dL (8.7-10.4); Carbon Dioxide 28 mmol/L (20-31); Chloride 101 mmol/L (98-107); Magnesium 1.9 mg/dL (1.6-2.6); Potassium 4.3 mmol/L (3.5-5.1); Sodium 136 mmol/L (136-145); Total Protein 7.7 g/dL (5.7-8.2)
[2024-04-04 17:58] LABS: Alkaline Phosphatase 120 U/L (46-116); Glucose 262 mg/dL (74-106)
--- NOTE | 2024-04-04 18:28 | ECG ---
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
[2024-04-04] MEDS ORDERED: DEXTROSE (50%) 50ML SYRG IV PRN (19:00)
[2024-04-04] MEDS ORDERED: ONDANSETRON HCL 4 MG/2 ML VIAL IV PRN (19:00)
[2024-04-04] MEDS ORDERED: hydrALAZINE HCL 20 MG/ML VL IV PRN (19:00)
[2024-04-04] MEDS ORDERED: TEMAZEPAM 15 MG CAP PO PRN (19:00)
[2024-04-04] MEDS ORDERED: HYDROcodone-ACET 5/325MG TAB PO PRN (19:00)
[2024-04-04] MEDS ORDERED: MORPHINE SULFATE INJ 2 MG/ml SYRG IV PRN (19:00)
[2024-04-04] MEDS ORDERED: ACETAMINOPHEN 325 MG TAB PO PRN (19:00)
[2024-04-04] MEDS: ASPirin-EC 325mg tab PO ONE (19:09)
[2024-04-04 21:31] VITALS: PULSE 105; RESP 16; O2SAT 95
[2024-04-04] MEDS: ACCU-CHEK COMFORT CURVE STRIP VI SCH (22:00)
[2024-04-04 22:11] VITALS: BP 156/70; PULSE 100; RESP 18; TEMP 98.2; O2SAT 95
[2024-04-04] MEDS: ATORVASTATIN 20 MG TAB PO SCH (22:37)
[2024-04-04] MEDS: InsuLIN REG 1unit/0.01ml Soln (100units/ml) SC SCH (22:45)
[2024-04-05] VITALS (7 sets, daily range): BP systolic 122–147; BP diastolic 52–82; PULSE 67–94; RESP 18–20; TEMP 97.4–97.8; O2SAT 94–97
--- NOTE | 2024-04-05 04:44 | DVHHP2 ---
History of Present Illness Reason for Visit: Lower back pain History of Present Illness 64-year-old female presents for evaluation of lower back pain. Patient reports having a fall two weeks ago where she fell backwards hitting the back of her head in the carpet. She states that three days ago she started developing speech stuttering problems and lower back pain. Denies any tingling or numbness to the extremities. No headache or blurred vision. No other acute complaints reported. Past Medical History Hypertension, dyslipidemia and diabetes mellitus Past Surgical History , hip surgery Smoke: No ALCOHOL: occassional Drugs: Marijuana Lives: with Family Review of Systems Review of Systems Review of systems are currently negative otherwise addressed in HPI. Allergies: Coded Allergies: Iodine (Verified Allergy, Severe, 10/25/14) Amoxicillin (Verified Adverse Reaction, Mild, 05/07/15) STOMACHACHE Medications Current Medications Medications Dose Ordered Sig/Chavez Route Start Time Stop Time Status Last Admin Dose Admin Amlodipine Besylate 5 mg DAILY PO 04/05/24 10:00 Atorvastatin Calcium 10 mg HS PO 04/04/24 22:00 04/04/24 22:37 10 MG Hydralazine HCl 10 mg Q6HP PRN IV 04/04/24 19:00 Acetaminophen/ Hydrocodone Bitart 1 tab Q4HP PRN PO 04/04/24 19:00 Temazepam 15 mg QHSP PRN PO 04/04/24 19:00 Ondansetron HCl 4 mg Q4HP PRN IV 04/04/24 19:00 Acetaminophen 650 mg Q6HP PRN PO 04/04/24 19:00 Morphine Sulfate 2 mg Q6HPRN PRN IV 04/04/24 19:00 Diagnostic Test (Pha) 1 strip ACHS 04/04/24 22:00 04/04/24 22:00 1 STRIP Insulin Human Regular ACHS SC 04/04/24 22:00 04/04/24 22:45 6 UNITS Dextrose 50 ml UD PRN IV 04/04/24 19:00 Exam Vital Signs Vital Signs Date Time Temp Pulse Resp B/P (MAP) Pulse Ox O2 Delivery O2 Flow Rate FiO2 04/05/24 01:00 97.5 88 19 122/52 (75) 94 97.5 04/04/24 22:10 Room Air* 0 21 Exam Gen: 64-year-old female in mild distress Skin: Warm, dry, normal color and texture, no rash. HEENT: Normocephalic atraumatic, mucous membranes moist and pink. Neck: Cervical and supraclavicular nodes normal without enlargement, trachea is midline, thyroid gland is normal without masses. Pulmonary: Clear to auscultation and percussion bilaterally. Cardiac: Regular rate and rhythm. No murmur Abdomen: Soft, nontender, nondistended, bowel sounds present all 4 quadrants, no guarding, no rigidity, no organomegaly. Extremities: No cyanosis, clubbing, no edema Neuro: Cranial nerves II through XII grossly intact, normal affect and speech, no focal motor deficits. Labs/Xrays ORDERING PHYSICIAN: ORALIA LARA MD PROCEDURE(s): CTH - STROKE CTH REASON: Head trauma speech deficit ORDER NUMBER(s): [id number], ACCESSION NUMBER(s): [id number] EXAM: CT STROKE CTH HISTORY: Head trauma speech deficit COMPARISON: None TECHNIQUE: Axial images of the head were obtained and reformatted in coronal and sagittal planes. All CT scans at this medical facility are performed using dose modulation t echniques as appropriate to a performed exam including the following: Automated exposure control was utilized; adjustment of the MA and/or KV according to patient size; and use of iterative reconstruction technique. CT Dose: CTDI volume is 52 mGy. Dose-length product is 831 mGy*cm FINDINGS: There is no evidence of acute intracranial hemorrhage, mass, mass effect midline shift. There is no hydrocephalus or extra-axial fluid collection. Note is made of cavum septum pellucidum and vergae. Meehan-white matter differentiation is maintained. The visualized paranasal sinuses and mastoid air cells are clear. The calvarium is intact. IMPRESSION: 1. No acute intracranial process. HS:Y ATED BY: ARBEN VALDEZ MD ORDERING PHYSICIAN: ORALIA LARA MD PROCEDURE(s): LS2CT - LS SPINE WO CONTRAST REASON: Fall ORDER NUMBER(s): [id number], ACCESSION NUMBER(s): [id number] CT LS SPINE WO CONTRAST Date: 04/04/2024 04:52 PM History: Fall Comparison: None TECHNIQUE: Multiple axial CT images of the lumbosacral spine were obtained using bone algorithm. Axial and coronal reformatting was done. Bone and soft tissue windows were reviewed. Radiation Dose Information: CT Dose: CTDI volume is 37.52 mGy. Dose-length product is 1193.41 mGy*cm FINDINGS: No CT evidence of definite acute fracture, spinal dislocation, or significant appearing acute subluxation is seen. The visualized paraspinal soft tissues are grossly unremarkable. T12-L1 There is no evidence of central spinal canal or neuroforaminal stenosis. L1-L2 There is no evidence of central spinal canal or neuroforaminal stenosis. L2-L3 There is no evidence of central spinal canal or neuroforaminal stenosis. L3-L4 There is no evidence of central spinal canal or neuroforaminal stenosis. L4-L5 There is no evidence of central spinal canal or neuroforaminal stenosis. L5-S1 There is no evidence of central spinal canal or neuroforaminal stenosis. There is lumbarization of S1. IMPRESSION: 1. No definite CT evidence of acute fracture or dislocation of the bony lumbar spine. 2. Lumbarization of S1. 3. All CT scans at this medical facility are performed using dose modulation techn iques as appropriate to a performed exam including the following: Automated exposure control was utilized; adjustment of the MA and/or KV according to patient size; and use of iterative reconstruction technique. Labs Test 04/04/24 17:18 Range/Units White Blood Count 13.7 H 4.4-10.8 10^3/uL Red Blood Count 5.21 H 4.0-5.20 10^6/uL Hemoglobin 15.4 12.2-16.2 g/dL Hematocrit 45.2 36.0-46.0 % Mean Corpuscular Volume 86.7 80.0-100.0 fL Mean Corpuscular Hemoglobin 29.5 28.0-32.0 pg Mean Corpuscular Hemoglobin Concent 34.0 32.0-36.0 g/dL Red Cell Distribution Width 15.1 H 11.8-14.3 % Platelet Count 324 140-450 10^3/uL Mean Platelet Volume 9.3 6.9-10.8 fL Neutrophils (%) (Auto) 66.2 37.0-80.0 % Lymphocytes (%) (Auto) 25.7 10.0-50.0 % Monocytes (%) (Auto) 4.7 0.0-12.0 % Eosinophils (%) (Auto) 2.9 0.0-7.0 % Basophils (%) (Auto) 0.5 0.0-2.0 % Neutrophils # (Auto) 9.1 H 1.6-8.6 10 ^3/uL Lymphocytes # (Auto) 3.5 0.4-5.4 10 ^3/uL Monocytes # (Auto) 0.6 0-1.3 10 ^3/uL Eosinophils # (Auto) 0.4 0-0.8 10 ^3/uL Basophils # (Auto) 0.1 0-0.2 10 ^3/uL Nucleated Red Blood Cells 0.1 % Sodium Level 136 136-145 mmol/L Potassium Level 4.3 3.5-5.1 mmol/L Chloride Level 101 98-107 mmol/L Carbon Dioxide Level 28 20-31 mmol/L Anion Gap 7 5-15 Blood Urea Nitrogen 17 9-23 mg/dL Creatinine 0.90 0.550-1.02 mg/dL Glomerular Filtration Rate Calc 71 >90 mL/min BUN/Creatinine Ratio 18.9 10.0-20.0 Serum Glucose 262 H 74-106 mg/dL Calcium Level 10.2 8.7-10.4 mg/dL Magnesium Level 1.9 1.6-2.6 mg/dL Total Bilirubin 0.3 0.2-1.0 mg/dL Aspartate Amino Transferase (AST) 13 13-40 U/L Alanine Aminotransferase (ALT) 18 7-40 U/L Alkaline Phosphatase 120 H 46-116 U/L Total Protein 7.7 5.7-8.2 g/dL Albumin 4.4 3.2-4.8 g/dL Assessment/Plan Assessment/Plan Assessment Acute on chronic back pain Uncontrolled diabetes mellitus Lumbar strain Accelerated hypertension Plan Admit the patient to [facility] to the hospitalist Pain management Physical therapy eval MRI of the brain pending Resume home medications Continue treatment per orders. Plan discussed with: Patient My Orders Orders - SUDHA HINTON AGACNP Procedure Category Date Status Time Consistent DIET 04/05/24 Transmitted Carb(Ccho)Diabetes Breakfast Amlodipine Tablet PHA 04/05/24 In Process (Norvasc Tablet) 10:00 Atorvastatin (Lipitor) PHA 04/04/24 In Process 22:00 Hydralazine Injection PHA 04/04/24 In Process (Apresoline Inject 19:00 Pt Request For Service PT 04/04/24 Logged 18:58 Admit ADMIT 04/04/24 Transmitted 18:58 Hydrocodone-Acet PHA 04/04/24 In Process 5/325mg Tab (Almond 19:00 Temazepam (Restoril) PHA 04/04/24 In Process 19:00 Ondansetron Hcl PHA 04/04/24 In Process (Zofran) 19:00 Condition: Stable MAICOL 04/04/24 In Process 18:58 Acetaminophen Tablet PHA 04/04/24 In Process (Tylenol Tablet) 19:00 Bedrest With Bathroom MAICOL 04/04/24 In Process Privileg 18:58 Morphine Sulfate PHA 04/04/24 In Process Injection 19:00 Glucose Blood PHA 04/04/24 In Process (Accu-Chek Comfort 22:00 Insulin R (Human) PHA 04/04/24 In Process (Insulin R) 22:00 Dextrose 50% Syringe PHA 04/04/24 In Process 19:[address] 04/05/24 Transmitted 04:34 Brain Head Wo Contrast MRI 04/05/24 Logged 04:34 Date of Service: Apr 04, 2024 Billing Provider: SUDHA HINTON Common Visit Codes: [id number] INP/OBS CARE (MOD) SUDHA HINTON Apr 05, 2024 04:44
--- NOTE | 2024-04-05 09:24 | DVH ---
EXAMINATION: MRI BRAIN HEAD WO CONTRAST INDICATION: Stuttering post head trauma COMPARISON: CT LS SPINE WO CONTRAST on DOS: 04/04/24 TECHNIQUE: Multiplanar, multisequence magnetic resonance imaging of the brain was performed without the use of i ntravenous contrast. FINDINGS: No evidence of acute or remote infarct. No intracranial hemorrhage. No mass effect. There is periventricular/deep white matter T2/FLAIR hyperintensity is nonspecific, but most commonly associated with chronic microvascular disease. The ventricles and sulci are normal in size for age. Clear basal cisterns. Flow voids in the major intracranial vessels are maintained. No abnormality of the orbits. Paranasal sinuses and mastoid air cells are clear. No abnormality of the visualized osseous structures and extracranial soft tissues. IMPRESSION: No acute infarct, intracranial hemorrhage, mass effect, or hydrocephalus.
[2024-04-05] MEDS: amLODIPine BESYLATE 5 MG TAB PO SCH (09:44)
--- NOTE | 2024-04-05 15:44 | DVHPN2 ---
Assessment/Plan Assessment/Plan Progress note Subjective 64-year-old female admitted status post mechanical fall 10 days CHRONIC CONDITION NURSE with back pain Objective Physical exam Alert, oriented x3 PERRLA Obese No JVD Clear breath sounds bilaterally S1-S2 regular rate and rhythm Abdomen distended non tender No lower extremity edema Straight leg raise test normal No paraspinal tenderness Equal strength and sensory bilaterally Stress incontinence on urine, no stool incontinence Able to ambulate Lab WBC 13 UA pending hyperglycemia Imaging MRI no acute changes CTH no acute changes Lumbar ct wnl Assessment and plan s/p mechanical fall with LBP metabolic encephalopathy? Sciatica old L hip fx s/p ORIF stuttering stress incontinence, chronic leukocytosis possible UTI tylenol, motrin, gabapentin Straight cath for UA Seen by DIRECTOR OF [employer]ER [employer], PT basal bolus and ISS FS x4 resume home meds depression screening neg geriatric assessment, independent, 1 fall last 1 year Replete electrolytes Diet CC DVT prophylaxis hold Plan discussed with: Patient Date of Service: Apr 05, 2024 Billing Provider: SELMA MAYERS MD Common Visit Codes: [id number] INP/OBS CARE(HIGH) SELMA MAYERS MD Apr 05, 2024 15:44
[2024-04-05] MEDS ORDERED: MORPHINE SULFATE INJ 2 MG/ml SYRG IV PRN (15:45)
[2024-04-05 17:29] LABS: Urine Bacteria FEW /hpf (None Seen); Urine Blood Negative /uL (Negative); Urine Clarity Clear (Clear); Urine Color Light-Yellow (Yellow); Urine Mucus FEW (None Seen); Urine Protein, UAD TRACE (Negative); Urine Specific Gravity 1.023 (1.001-1.035); Urine Urobilinogen Normal (Negative); Urine WBC 12 /hpf (0 - 5); Urine pH 5.5 (5.0-9.0)
[2024-04-05] MEDS: InsuLIN REG 1unit/0.01ml Soln (100units/ml) SC SCH (18:11)
[2024-04-05] MEDS: GABAPENTIN 300 MG CAP PO SCH (21:28)
[2024-04-05] MEDS: IBUPROFEN 400 MG TAB PO SCH (21:28)
[2024-04-05] MEDS: ACETAMINOPHEN 325 MG TAB PO SCH (21:28)
[2024-04-05] MEDS: INSULIN LANTUS (GLARGINE) 1 /0.01ml (100units/ml) SC SCH (21:32)
[2024-04-06 00:55] VITALS: BP 134/63; PULSE 78; RESP 18; TEMP 98; O2SAT 93
[2024-04-06 05:00] VITALS: BP 135/66; PULSE 77; RESP 16; TEMP 97.4; O2SAT 92
[2024-04-06 06:16] LABS: Basophils # (auto) 0 10 ^3/uL (0-0.2); Basophils % (auto) 0.3 % (0.0-2.0); Eosinophils # (auto) 0.4 10 ^3/uL (0-0.8); Eosinophils % (auto) 5.2 % (0.0-7.0); Hematocrit 41.5 % (36.0-46.0); Hemoglobin 13.8 g/dL (12.2-16.2); Lymphocytes # (auto) 2.5 10 ^3/uL (0.4-5.4); Lymphocytes % (auto) 30.9 % (10.0-50.0); Mean Corpuscular Hemoglobin 29.1 pg (28.0-32.0); Mean Corpuscular Hgb Conc. 33.3 g/dL (32.0-36.0); Mean Corpuscular Volume 87.4 fL (80.0-100.0); Monocytes # (auto) 0.5 10 ^3/uL (0-1.3); Monocytes % (auto) 6.4 % (0.0-12.0); Neutrophils # (auto) 4.6 10 ^3/uL (1.6-8.6); Neutrophils % (auto) 57.2 % (37.0-80.0); Platelet Count (auto) 276 10^3/uL (140-450); Red Blood Cells 4.75 10^6/uL (4.0-5.20); Red Cell Distribution Width 15.2 % (11.8-14.3)
[2024-04-06 06:22] LABS: Anion Gap 6 (5-15); Carbon Dioxide 27 mmol/L (20-31); Chloride 101 mmol/L (98-107)
[2024-04-06 06:23] LABS: Calcium 9.4 mg/dL (8.7-10.4)
[2024-04-06 06:28] LABS: BUN/Creatinine Ratio 20.9 (10.0-20.0); Blood Urea Nitrogen 14 mg/dL (9-23)
[2024-04-06 06:40] LABS: Glucose 292 mg/dL (74-106); Sodium 134 mmol/L (136-145)
[2024-04-06 07:38] VITALS: O2SAT 97
[2024-04-06 09:00] VITALS: BP 136/79; PULSE 77; RESP 16; TEMP 97.9; O2SAT 97
[2024-04-06] MEDS: INSULIN LISPRO (HUMAN) 100 UNITS/ML ML SC ONE (09:38)
[2024-04-06] MEDS ORDERED: GABA-1250 PO (12:19)
[2024-04-06] MEDS ORDERED: IBU600T PO (12:19)
[2024-04-06] MEDS ORDERED: CYCL-839 PO (12:19)
[2024-04-06] MEDS ORDERED: FAMO-161 PO (12:19)
[2024-04-06] MEDS ORDERED: ACET-1882 PO (12:19)
--- NOTE | 2024-04-06 12:20 | DVHDS2 ---
Discharge Summary Date of Admission Apr 04, 2024 at 18:58 Date of Discharge: Apr 06, 2024 Labs/Diagnostic Data: Laboratory Results Test 04/06/24 11:09 04/06/24 05:35 04/05/24 17:04 04/04/24 17:18 POC Glucose 302 mg/dl (70-106) White Blood Count 8.0 10^3/uL (4.4-10.8) Red Blood Count 4.75 10^6/uL (4.0-5.20) Hemoglobin 13.8 g/dL (12.2-16.2) Hematocrit 41.5 % (36.0-46.0) Mean Corpuscular Volume 87.4 fL (80.0-100.0) Mean Corpuscular Hemoglobin 29.1 pg (28.0-32.0) Mean Corpuscular Hemoglobin Concent 33.3 g/dL (32.0-36.0) Red Cell Distribution Width 15.2 % (11.8-14.3) Platelet Count 276 10^3/uL (140-450) Mean Platelet Volume 9.3 fL (6.9-10.8) Neutrophils (%) (Auto) 57.2 % (37.0-80.0) Lymphocytes (%) (Auto) 30.9 % (10.0-50.0) Monocytes (%) (Auto) 6.4 % (0.0-12.0) Eosinophils (%) (Auto) 5.2 % (0.0-7.0) Basophils (%) (Auto) 0.3 % (0.0-2.0) Neutrophils # (Auto) 4.6 10 ^3/uL (1.6-8.6) Lymphocytes # (Auto) 2.5 10 ^3/uL (0.4-5.4) Monocytes # (Auto) 0.5 10 ^3/uL (0-1.3) Eosinophils # (Auto) 0.4 10 ^3/uL (0-0.8) Basophils # (Auto) 0 10 ^3/uL (0-0.2) Nucleated Red Blood Cells 0.0 % Sodium Level 134 mmol/L (136-145) Potassium Level 4.0 mmol/L (3.5-5.1) Chloride Level 101 mmol/L (98-107) Carbon Dioxide Level 27 mmol/L (20-31) Anion Gap 6 (5-15) Blood Urea Nitrogen 14 mg/dL (9-23) Creatinine 0.67 mg/dL (0.550-1.02) Glomerular Filtration Rate Calc 96 mL/min (>90) BUN/Creatinine Ratio 20.9 (10.0-20.0) Serum Glucose 292 mg/dL (74-106) Calcium Level 9.4 mg/dL (8.7-10.4) Urine Color Light-yellow (Yellow) Urine Clarity Clear (Clear) Urine pH 5.5 (5.0-9.0) Urine Specific [place] 1.023 (1.001-1.035) Urine Protein Trace (Negative) Urine Ketones 1+ (Negative) Urine Blood Negative /uL (Negative) Urine Nitrite Negative (Negative) Urine Bilirubin Negative (Negative) Urine Urobilinogen Normal mg/dL (Negative) Urine Leukocyte Esterase 2+ /uL (Negative) Urine RBC 5 /hpf (0 - 4) Urine WBC 12 /hpf (0 - 5) Urine Squamous Epithelial Cells Few /hpf (<5) Urine Bacteria Few /hpf (None Seen) Urine Mucus Few (None Seen) Urine Glucose 4+ mg/dL (Normal) Magnesium Level 1.9 mg/dL (1.6-2.6) Total Bilirubin 0.3 mg/dL (0.2-1.0) Aspartate Amino Transferase (AST) 13 U/L (13-40) Alanine Aminotransferase (ALT) 18 U/L (7-40) Alkaline Phosphatase 120 U/L (46-116) Total Protein 7.7 g/dL (5.7-8.2) Albumin 4.4 g/dL (3.2-4.8) Other Laboratory Tests 04/06/24 05:35 Brief Hx & Hospital Course: 64 F admitted with LBP and stuttering s/p mechanical fall 10 days [employer], reported starting having stuttering noticed by daughter. CT and MRI clear, No spinal tenderness, patient with known sciatica. started on gabapentin, flexeril and pain management, seen by PRINCIPAL CONSULTANT. Stroke ruled out, patient on my assessment with normal speech and per daughter and patient back to baseline. Patient to follow up with PCP. Condition at Discharge: Good Final Diagnosis/Problems List subacute LBP s/p mechanical fall Discharge Disposition: Home Discharge Instruct/Medications Diet: Regular Activity: No Restrictions, As Tolerated Follow Up/Referral: PCP Medications: flexeril tylenol motrin pepcid gabapentin 37 Discharge Statement: "Patient was advised to return to the ER or call 911 if any headaches, dizziness, shortness of breath, chest pain, abdominal pain, bleeding, fevers, or worsening of medical condition. Patient was counseled about treatment plan, medications, possible side effects, patientverbalized understanding. All questions were answered to the best of my ability. This discharge took greater then 30 minutes in planning, reviewing documentation, counseling the patient, and discussing with other team members." ASSESSMENT ASSESSMENT Assessment s/p mechanical fall with LBP metabolic encephalopathy ruled out Sciatica old L hip fx s/p ORIF stuttering stress incontinence, chronic leukocytosis reactive UTI ruled out Date of Service: Apr 06, 2024 Billing Provider: SELMA MAYERS MD Common Visit Codes: [id number] DISCH DAY >30min SELMA MAYERS MD Apr 06, 2024 12:20
[2024-04-06 13:00] VITALS: BP 162/72; PULSE 81; RESP 18; TEMP 97.9; O2SAT 94
[2024-04-06 13:27] VITALS: BP 136/79; TEMP 36.6
[2024-04-06] MEDS: INSULIN LISPRO (HUMAN) 100 UNITS/ML ML SC SCH (13:42)
[2024-04-06] MEDS ORDERED: INSULIN LANTUS (GLARGINE) 1 /0.01ml (100units/ml) SC SCH (22:00)
== END 2024-04-06 13:50 | disposition home or self-care (01) | DRG 552 ==
LOC: ER 14:04 → OVERFLOW 18:58 → WEST WING 19:22
PROVIDERS: ADMIT Nurse Practitioner; ATTEND Student in an Organized Health Care Education/Training Program
DX: M54.40 Lumbago with sciatica, unspecified side (principal); S30.0XXA Contusion of lower back and pelvis, initial encounter; D72.829 Elevated white blood cell count, unspecified; N39.3 Stress incontinence (female) (male); S00.03XA Contusion of scalp, initial encounter; S39.012A Strain of muscle, fascia and tendon of lower back, initial encounter; E78.5 Hyperlipidemia, unspecified; I10 Essential (primary) hypertension; W18.39XA Other fall on same level, initial encounter; E11.9 Type 2 diabetes mellitus without complications; Z88.1 Allergy status to other antibiotic agents; Z87.442 Personal history of urinary calculi; Y93.89 Activity, other specified; Y92.89 Other specified places as the place of occurrence of the external cause; Y99.8 Other external cause status
CPT/HCPCS: 36415; 70450; 70551; 71046; 72131; 80048; 80053; 81001; 82962; 83735; 85025; 92607; 93005; 97163; G0378; J1815